=== PATIENT | female | born 1960 | race Caucasian/White ===

== ENCOUNTER → 2016-08-26 | Outpatient (CLI) | payer OTHER ==
[~2016-08-26] MED LIST: ACETAMINOPHEN650 M1 PO; ALDACTONE PO; ALDACTONE100 MG PO; AMBIEN PO; AMBIEN10 MG PO; ANTI-DIARRHEAL2 M1 PO; ATIVAN0.5 MG PO; BENTYL20 MG PO; CALCIUM + D 6001 TA1 PO; CIPRO PO; CORGARD PO; CORGARD20 MG PO; DESYREL50 MG PO; DOCUSATE SODIU100 MG PO; FERRO-TIME325 MG PO; FERROUS SULFATE PO; FLAGYL PO; FOLIC ACID1 MG PO; FUROSEMIDE40 MG PO; GLUCOTROL PO; HUMALOG100 UNIT/2 SUBQ; HUMULIN 70100 UNIT/1; HYDROCODON-ACE1 EAC5 PO; HYDROCODON-ACE1 EAC7 PO; HYDROCODONE-A1 UDTA4 PO; IRON325 ( 651 PO; IRON325 ( 652 PO; JANUVIA100 MG PO; K-DUR10 MEQ PO; K-DUR20 ME1 PO; KCL PO; KETOPROFEN50 MG PO; LANTUS SOL100 UNIT/1 SUBQ; LANTUS100 U/ML SUBQ; LANTUS100 UNITS/; LASIX PO; LASIX20 MG PO; LEVAQUIN PO; MAG-OX 400400 M1 PO; METFORMIN HCL500 M1 PO; MOBIC15 MG PO; MULTI VITAMIN1 EACH PO; MULTI-VITAMIN1 EAC1 PO; MULTIPLE VITAMI1 T11 PO; NADOLOL20 MG PO; NO MEDICATIONS; OXYCODONE-APAP1 EACH PO; PANTOPRAZOLE SO40 MG PO; PATIENT'S PHARMACY; PRAVACHOL PO; PRAVASTATIN SOD10 MG PO; PROTONIX PO; THIAMINE HCL100 MG PO; VITAMIN D-32000 UNI2 PO; ZOFRAN PO; ZOFRANODT PO
--- NOTE | ~2016-08-26 | MY11 ---
[facility] A Service of [facility] RADIOLOGY TEXT RESULTS PATIENT: BARBI FUENTES LOCATION: [facility] : 60 UNIT #: [id number] AGE: [address]: Generic Doctor NOT IN SYSTEM SEX: F ORDER DR: [id number] [facility] [address] [place], [place] [address] [id number] O MR#: [id number] Acc #: [id number] NAME: BARBI FUENTES : 1960 SEX: F STUDY DATE/TIME: 08/26/2016 13:36 UNIT: [facility] ROOM: STUDY DESCRIPTION: MY Mammogram Screening Dig Marquis Attending Physician: Generic Doctor Not In System Referring Physician: Generic Doctor Not In System Ordering Physician: Physician Non-Staff Primary Care Physician: No Primary Care Physician MEDICAL IMAGING REPORT This report is preliminary unless electronic signature is present EXAM Digital screening mammogram 08/26/2016 HISTORY 56-year-old woman, positive family history, mother age 50. Previous left breast biopsy. Significant weight loss noted. COMPARISON STUDIES 05/20/2010, 06/07/2011. FINDINGS Digital imaging of each breast was completed utilizing screening protocol. An additional exaggerated craniocaudal view of the left breast is provided. Review includes FDA-approved CAD device. Breast parenchyma is somewhat heterogeneous and partially fatty replaced. Remaining parenchymal opacities project upper central and upper outer quadrants bilaterally with dominance noted in the upper outer quadrant of the left breast. There is no breast mass identified and I see no interval occurring microcalcifications. There is no visible architectural disturbance. This dominant area was evaluated with diagnostic mammogram and ultrasound in 2010. I believe it is appropriate to reevaluate the upper outer quadrant of the left breast as parenchymal densities appear slightly greater although this could be a result of technique. Right breast is stable. IMPRESSION Incomplete mammographic evaluation. Additional left breast imaging is recommended to include a true lateral projection, exaggerated craniocaudal projection and high-resolution spot compression. Targeted left breast ultrasound should also be performed during the visit. BIRADS 0 additional left breast imaging recommended [facility] A Service [facility] RADIOLOGY TEXT RESULTS PATIENT: BARBI FUENTES LOCATION: [facility] #: [id number] : 60 UNIT #: [id number] AGE: [address]: Generic Doctor NOT IN SYSTEM SEX: F ORDER DR: Patients over the age of 40 are entered into a reminder system with target due date for the next mammogram. A result letter will also be sent to the patient. BIRADS: 0 - Need additional imaging evaluation and/or prior mammograms for comparison Dictated by... Mejia Sanders M.D. THIS IS AN ELECTRONICALLY VERIFIED REPORT Mejia Sanders M.D. at 08/26/2016 3:57 PM Hazel TD: 08/26/2016 15:07 JOB #: [id number] MEDICAL IMAGING REPORT Page 1 of 1 COPY
== END | disposition home or self-care (01) ==
LOC: CWCC 13:10
DX: Z12.31 Encounter for screening mammogram for malignant neoplasm of breast (principal); Z80.3 Family history of malignant neoplasm of breast; R92.8 Other abnormal and inconclusive findings on diagnostic imaging of breast
CPT/HCPCS: G0202

== ENCOUNTER → 2016-09-06 | Outpatient (CLI) | payer OTHER ==
--- NOTE | ~2016-09-06 | US24 ---
[facility] A Service of [facility] RADIOLOGY TEXT RESULTS PATIENT: BARBI FUENTES LOCATION: [facility] : 60 UNIT #: [id number] AGE: [address]: Michelle Mandujano MD SEX: F ORDER DR: [id number] [place] [id number] [facility]. [place], [place] [address] [id number] O MR#: [id number] Acc #: [id number] NAME: BARBI FUENTES. : 1960 SEX: F STUDY DATE/TIME: 09/06/2016 14:41 UNIT: [facility] ROOM: STUDY DESCRIPTION: US Breast Unilateral Attending Physician: Michelle Mandujano M.D. Ordering Physician: Michelle Mandujano M.D. Primary Care Physician: Michelle Mandujano M.D. MEDICAL IMAGING REPORT This report is preliminary unless electronic signature is present EXAM Left breast ultrasound INDICATIONS Abnormal screening mammogram. Asymmetric density in the upper outer quadrant left breast. FINDINGS Santo-scale and color Doppler ultrasound of the left breast was performed. There is no suspicious ultrasound findings. No evidence of malignancy. IMPRESSION Negative left breast ultrasound. Patients over the age of 40 are entered into a reminder system with target due date for the next mammogram. A result letter will also be sent to the patient. BIRADS: 1. Negative examination. Dictated by... Stefano Parisi M.D. THIS IS AN ELECTRONICALLY VERIFIED REPORT Stefano Parisi M.D. at 09/06/2016 4:58 PM RPC/rnr TD: 09/06/2016 16:38 JOB #: [id number] [facility] A Service [facility] RADIOLOGY TEXT RESULTS PATIENT: BARBI FUENTES LOCATION: [facility] : 60 UNIT #: [id number] AGE: [address]: Michelle Mandujano MD SEX: F ORDER DR: MEDICAL IMAGING REPORT Page 1 of 1 COPY
--- NOTE | ~2016-09-06 | MY7 ---
[facility] A Service of [facility] RADIOLOGY TEXT RESULTS PATIENT: BARBI FUENTES LOCATION: [facility] : 60 UNIT #: [id number] AGE: [address]: Michelle Mandujano MD SEX: F ORDER DR: [id number] [facility] [address] [place], [place] [address] [id number] O MR#: [id number] Acc #: [id number] NAME: BARBI FUENTES : 1960 SEX: F STUDY DATE/TIME: 09/06/2016 14:18 UNIT: [facility] ROOM: STUDY DESCRIPTION: MY Mammogram Dx Dig Lt Attending Physician: Michelle Mandujano M.D. Ordering Physician: Michelle Mandujano M.D. Primary Care Physician: Michelle Mandujano M.D. MEDICAL IMAGING REPORT This report is preliminary unless electronic signature is present EXAM Left digital diagnostic mammogram with CAD, 09/06/2016. HISTORY 56-year-old asymptomatic female with an abnormal screening mammogram. FINDINGS LEFT MAMMOGRAM: Spot compression CC, spot compression MLO, ML, and exaggerated CC views of the left breast were obtained. The background breast parenchyma consists of scattered fibroglandular densities. No suspicious mass, microcalcification, or architectural distortion. The spot compression views show the glandular breast tissue to be similar to multiple prior studies. Exam is compared to prior mammogram from 08/26/2016 through 05/20/2010. Given the abnormality on the screening mammogram, diagnostic left breast ultrasound was performed. LEFT BREAST ULTRASOUND: Santo-scale and color Doppler ultrasound of the upper outer quadrant of the left breast was performed. No suspicious ultrasound findings are identified. No evidence of mass or malignancy. IMPRESSION Negative left breast ultrasound and left breast mammogram. Recommend return to annual screening mammogram. Results of this study, as well as my recommendations, were discussed directly with the patient at the time of her visit to the Department of Radiology. [facility] A Service [facility] RADIOLOGY TEXT RESULTS PATIENT: BARBI FUENTES LOCATION: [facility] : 60 UNIT #: [id number] AGE: [address]: Michelle Mandujano MD SEX: F ORDER DR: Patients over the age of 40 are entered into a reminder system with target due date for the next mammogram. A result letter will also be sent to the patient. BIRADS: 1 Negative Dictated by... Stefano Parisi M.D. THIS IS AN ELECTRONICALLY VERIFIED REPORT Stefano Parisi M.D. at 09/07/2016 7:53 AM Tio TD: 09/06/2016 18:41 JOB #: [id number] MEDICAL IMAGING REPORT Page 1 of 1 COPY
--- NOTE | ~2016-09-06 | BD1 ---
[facility] A Service of [facility] RADIOLOGY TEXT RESULTS PATIENT: BARBI FUENTES LOCATION: [facility] : 60 UNIT #: [id number] AGE: [address]: Michelle Mandujano MD SEX: F ORDER DR: [id number] [facility] [address] [place], [place] [address] [id number] O MR#: [id number] Acc #: [id number] NAME: BARBI FUENTES : 1960 SEX: F STUDY DATE/TIME: 09/06/2016 14:03 UNIT: [facility] ROOM: STUDY DESCRIPTION: BD Dexa Bone Dens 1+ Site Attending Physician: Michelle Mandujano M.D. Ordering Physician: Michelle Mandujano M.D. Primary Care Physician: Michelle Mandujano M.D. MEDICAL IMAGING REPORT This report is preliminary unless electronic signature is present EXAM DXA scan HISTORY 56-year-old female with recent fracture of the clavicle. Assess bone density. FINDINGS Bone density was assessed utilizing a logic bone densitometer. The total bone density within the lumbar spine was calculated at 0.770 g/cm2 with a T-score -2.5. Total bone dense of the proximal left femur was calculated at 0.659 g/cm2 with a T-score -2.3. IMPRESSION Total bone density within the lumbar spine is 2.5 standard deviations below the mean and is compatible with the World Health Organization criteria for osteoporosis. Dictated by... Patti Dove M.D. THIS IS AN ELECTRONICALLY VERIFIED REPORT Patti Dove M.D. at 09/07/2016 1:58 PM [place] TD: 09/06/2016 17:55 JOB #: [id number] MEDICAL IMAGING REPORT Page 1 of 1 COPY
== END | disposition home or self-care (01) ==
LOC: CWCC 13:39
DX: Z13.820 Encounter for screening for osteoporosis (principal); R92.8 Other abnormal and inconclusive findings on diagnostic imaging of breast; S42.009A Fracture of unspecified part of unspecified clavicle, initial encounter for closed fracture
CPT/HCPCS: 76641; 77080; G0206

== ENCOUNTER → 2016-11-10 | Outpatient (CLI) | payer OTHER ==
--- NOTE | ~2016-11-10 | XA170 ---
[facility] A Service of [facility] RADIOLOGY TEXT RESULTS PATIENT: BARBI FUENTES LOCATION: [facility] : 60 UNIT #: [id number] AGE: [address]: DUSTY GARCIA APRN SEX: F ORDER DR: [id number] [facility] [address]. [place], [place] [address] [id number] O MR#: [id number] Acc #: [id number] NAME: BARBI FUENTES : 1960 SEX: F STUDY DATE/TIME: 11/10/2016 14:11 UNIT: [facility] ROOM: STUDY DESCRIPTION: XA Paracentesis W Image Attending Physician: Dusty Garcia Aprn Referring Physician: Dusty Garcia Aprn Ordering Physician: Dusty Garcia Aprn MEDICAL IMAGING REPORT This report is preliminary unless electronic signature is present EXAM Therapeutic paracentesis under ultrasound guidance HISTORY Refractory ascites. PROCEDURE Procedure, attendant risks and options were discussed with Ms. Fuentes. She understands and wishes to proceed. Ultrasound examination was performed. An appropriate site was chosen over the right flank. Skin was marked, prepped with Chlorhexidine, and sterile drapes applied. Utilizing sterile barrier technique, including sterile gloves, under local anesthesia, a 5-S[place]ankan catheter was inserted and a total of 2.5 L was removed. This was very well tolerated. Catheter was removed, hemostasis achieved. CONCLUSION Technically successful therapeutic paracentesis with removal of 2.5 L of fluid. Dictated by... Kartik To M.D. THIS IS AN ELECTRONICALLY VERIFIED REPORT Kartik To M.D. at 11/12/2016 9:32 AM NAWAF/juhi TD: 11/10/2016 21:27 JOB #: [id number] MEDICAL IMAGING REPORT Page 1 of 1 COPY
[2016-11-10 13:49] LABS: HEMATOCRIT 30.8 % (35.0-45.0); MEAN CELL VOLUME 92.3 FL (83-96); MEAN CORPUSCULAR HEMOGLOBIN 29.9 PG (28-34); MEAN CORPUSCULAR HGB CONC 32.4 g/dL (30-36); MEAN PLATELET VOLUME 10.7 FL (6.5-11.5); RED BLOOD COUNT 3.34 X10e (3.90-5.30); RED CELL DISTRIBUTION WIDTH 16.3 % (11.0-15.5); WHITE BLOOD COUNT 5.5 X10e3 (4.0-10.5)
[2016-11-10 14:00] LABS: INR 1.1; PROTHROMBIN TIME (PATIENT) 12.3 SECONDS (10.0-11.7)
== END | disposition home or self-care (01) ==
LOC: CIVR 13:13
PROVIDERS: Nurse Practitioner
PROC: 0W9G3ZZ Drainage of Peritoneal Cavity, Percutaneous Approach (ICD-10-PCS; principal; 2016-11-10)
DX: R18.8 Other ascites (principal)
CPT/HCPCS: 36415; 85027; 85610; 85730

== ENCOUNTER → 2016-12-20 | Day surgery (SDC) | payer OTHER ==
--- NOTE | ~2016-12-20 | OR ---
Unit #: [id number] #: [id number] Patient: BARBI FUENTES [id number] [address] [address] [id number] O MR#: [id number] NAME: BARBI FUENTES ROOM: Date of Procedure: 12/20/2016 Admission Date: 12/20/2016 Surgeon: Jefferson Lundberg M.D. : 1960 Attending Physician: Jefferson Lundberg M.D. Primary Care Physician: Bk Miles OPERATIVE REPORT PREOPERATIVE DIAGNOSIS Left shoulder retained painful hardware. POSTOPERATIVE DIAGNOSIS Left shoulder retained painful hardware. PROCEDURE PERFORMED Left shoulder deep hardware removal. YARN CONDITIONER Nuha Chavez CFA. ANESTHESIA General endotracheal. COMPLICATIONS None. SPECIMENS None. DRAINS None. SURGICAL IMPLANTS None. INDICATION FOR PROCEDURE Ms. Fuentes is a 56-year-old female who had a distal clavicle fracture roughly six months ago, treated with hook plate technique. After sufficient time to heal, it was felt that removing the hook plate was needed to prevent potential problems with the acromion as well as impingement with the rotator cuff. Discussion with the patient noted that the hook plates are not designed to stay in. She elected to proceed with surgical removal of the plate. Risks, benefits and alternatives of surgery were discussed with the patient. Informed consent was obtained. Risks include, but are not limited to, infection, bleeding, nerve injury, blood clots, risks associated with anesthesia, persistent pain, need for further surgery, and possibly . DESCRIPTION OF PROCEDURE On 12/20/2016, the patient was seen in the preoperative holding area, Unit #: [id number] #: [id number] Patient: BARBI FUENTES where her surgical site was marked. Preoperative block performed. H and P and consent updated. The patient was taken to the operating room and provided general anesthesia. She was carefully moved to beach chair position. All bony prominences were well padded. Head and neck kept in neutral position at all times. Left upper extremity was prepped and draped in typical sterile fashion. Time-out performed confirming the correct surgical site and procedure. A saber incision was made through the previous scar. Soft tissues were carefully retracted off the plate. A series of locking screws and cortical screw were removed sequentially. The plate was then freed up and removed. The hook was removed from the subacromial space. The shoulder was ranged. Full motion noted with no impingement. Before and after, fluoroscopy images were taken confirming appropriate removal of hardware and no surrounding issues with the distal clavicle. It appeared to be well healed. At this point, wound was thoroughly irrigated with normal saline. Deep tissue closed with 2-0 Vicryl suture followed by a 4-0 Monocryl subcuticular stitch for the skin. Dermabond, Telfa and Tegaderm were placed. Drapes were taken down. A simple sling was placed. The patient was subsequently awakened from general anesthesia in stable condition and taken to the PACU postoperatively. POSTOPERATIVE PLAN The patient will be discharged home. She will follow up in 7 to 10 days. She can have range of motion as tolerated. No complications encountered during the surgical procedure. Dictated by... Annie Taylor/rupali TD: 12/20/2016 10:06 JOB #: [id number] OPERATIVE REPORT Page 1 of 1 X X PROCEDURE OPERATIVE NOTE
--- NOTE | ~2016-12-20 | CR226 ---
[facility] A Service of [facility] RADIOLOGY TEXT RESULTS PATIENT: BARBI FUENTES LOCATION: [facility] : 60 UNIT #: [id number] AGE: [address]: Jefferson Lundberg MD SEX: F ORDER DR: [id number] [facility] [address] [place], [place] [address] [id number] O MR#: [id number] Acc #: [id number] NAME: BARBI FUENTES : 1960 SEX: F STUDY DATE/TIME: 12/20/2016 8:20 UNIT: [facility] ROOM: STUDY DESCRIPTION: CR Shoulder 1 View Lt Attending Physician: Jefferson Lundberg M.D. Ordering Physician: Jefferson Lundberg M.D. Primary Care Physician: Jessica Salvador M.D. MEDICAL IMAGING REPORT This report is preliminary unless electronic signature is present EXAM C-arm fluoroscopy with 2 permanent images of the left shoulder, 12/20/2016. HISTORY Left shoulder hardware removal in OR. FINDINGS C-arm fluoroscopy was provided for use in the operating room. 2 spot film radiographs of the left shoulder were obtained in the anterior projection and 0.8 minutes of fluoroscopy time was utilized. The first radiograph shows surgical plate traversing the distal clavicle and the left acromioclavicular joint. The second radiograph shows the surgical plate to have been removed. The bones appear in anatomic alignment. Dictated by... Jason Plummer M.D. THIS IS AN ELECTRONICALLY VERIFIED REPORT Jason Plummer M.D. at 12/21/2016 7:34 AM KRT/gz TD: 12/20/2016 11:06 JOB #: [id number] MEDICAL IMAGING REPORT Page 1 of 1 COPY
[2016-12-20 06:42] LABS: HEMATOCRIT 39.7 % (35.0-45.0); HEMOGLOBIN 12.9 gm/dL (12.0-16.0); MEAN CELL VOLUME 87.3 FL (83-96); MEAN CORPUSCULAR HEMOGLOBIN 28.4 PG (28-34); MEAN CORPUSCULAR HGB CONC 32.5 g/dL (30-36); MEAN PLATELET VOLUME 10.7 FL (6.5-11.5); RED BLOOD COUNT 4.55 X10e (3.90-5.30); RED CELL DISTRIBUTION WIDTH 17.8 % (11.0-15.5); WHITE BLOOD COUNT 3.7 X10e3 (4.0-10.5)
[2016-12-20 06:51] LABS: INR 1.2; PROTHROMBIN TIME (PATIENT) 12.7 SECONDS (10.0-11.7)
[2016-12-20 06:59] LABS: ALBUMIN SERUM 3.8 g/dL (3.5-5.0); BILIRUBIN,TOTAL 0.8 mg/dL (0.2-2.0); BUN/CREATININE RATIO 22.5; CREATININE SERUM 0.4 mg/dL (0.6-1.4); GLOM FILT RATE Estimated 116.5 mL/min (>60); POTASSIUM 4.2 mmol/L (3.5-5.1); PROTEIN TOTAL SERUM 7.2 g/dL (6.0-8.3)
== END | disposition home or self-care (01) ==
LOC: CSUR 05:46
PROVIDERS: Orthopaedic Surgery
DX: T84.84XA Pain due to internal orthopedic prosthetic devices, implants and grafts, initial encounter (principal); E11.9 Type 2 diabetes mellitus without complications; I10 Essential (primary) hypertension; K21.9 Gastro-esophageal reflux disease without esophagitis; E78.5 Hyperlipidemia, unspecified; F17.210 Nicotine dependence, cigarettes, uncomplicated; Z88.8 Allergy status to other drugs, medicaments and biological substances; Z79.4 Long term (current) use of insulin; Z79.899 Other long term (current) drug therapy; Z79.891 Long term (current) use of opiate analgesic; Z98.51 Tubal ligation status; Z98.818 Other dental procedure status; Z98.890 Other specified postprocedural states; Y83.1 Surgical operation with implant of artificial internal device as the cause of abnormal reaction of the patient, or of later complication, without mention of misadventure at the time of the procedure
CPT/HCPCS: 73020; 76001; 80053; 82947; 85027; 85610; J0330; J0690; J1815; J2250; J2370; J2405; J2795; J3010

== ENCOUNTER → 2017-01-18 | Day surgery (SDC) | payer OTHER ==
--- NOTE | ~2017-01-18 | OR ---
Unit #: [id number] #: [id number] Patient: BARBI FUENTES [id number] [address] [place], [place] [address] [id number] O MR#: [id number] NAME: BARBI FUENTES ROOM: Date of Procedure: 01/18/2017 Admission Date: 01/18/2017 Surgeon: Micky Mack M.D. : 1960 Attending Physician: Micky Mack M.D. Primary Care Physician: Bk Miles OPERATIVE REPORT PRIMARY CARE PHYSICIAN Jessica Salvador M.D. PREOPERATIVE DIAGNOSES The patient was recently admitted to [facility] and was told that she had esophageal varices, and the patient was admitted for four days and then discharged. She has come for elective upper endoscopy and possible variceal band ligation. PROCEDURES PERFORMED Upper gastrointestinal endoscopy and esophageal variceal band ligation. POSTOPERATIVE DIAGNOSES 1. The patient had moderately severe and diffuse portal hypertensive gastropathy changes involving the fundus and body of the stomach. 2. There were esophageal varices in the mid and distal esophagus. Only one of the two varices was larger and this was bandaged using rubber band ligation. 3. Rest of the examination up to third part of duodenum was normal. Specifically, no active bleeding was noted. RECOMMENDATIONS The patient will be followed up in the office in 3 months' time. SEDATION USED MAC. DESCRIPTION OF PROCEDURE Following detailed explanation of the potential risks and complications of an upper endoscopy, namely perforation, bleeding, and complications related to sedation, the patient was brought to GI lab and laid in the left lateral decubitus position. Lubricated tip of the Olympus video upper endoscope was passed through the bite block into the proximal esophagus under direct vision. The entire esophageal mucosa was examined. The patient was noted to have esophageal varices in mid and distal esophagus. Only one of these was grade 3 varix. The other was smaller. No stigmata of recent bleed were seen. The scope was then advanced into the gastric cavity and the latter was insufflated. Changes of portal hypertensive gastropathy were noted in the form of reticular appearance of the entire mucosa of the fundus and midbody of the stomach. The changes were also present in the antral area. Pylorus was intubated with visualization of the normal duodenal bulb and second and third part of the Unit #: [id number] #: [id number] Patient: BARBI FUENTES duodenum. Upon withdrawal and retroflexion; incisura, cardia, and greater curve was examined and no additional findings were noted. The scope was then withdrawn in the distal esophagus. The entire esophageal mucosa was examined all the way up to pharynx. No additional findings were noted. A rapid shooter band ligator assembly was mounted on the scope tip. The patient was reintubated. One of the larger of the two varices was then treated by rubber band ligation. A band being deployed just above the GE junction. Excellent hemostasis was achieved and photodocumentation was obtained. The scope was then withdrawn all the way up to pharynx. No additional findings were noted. The patient tolerated the procedure without any postprocedure complications. Dictated by... Annie Phillips TD: 01/18/2017 16:26 JOB #: [id number] OPERATIVE REPORT Page 1 of 1 X Micky Mack MD X PROCEDURE OPERATIVE NOTE
[2017-01-18 13:39] LABS: BASOPHIL% 1.2 % (0-2.5); EOSINOPHIL# 0.1 X10e3 (0-0.7); EOSINOPHIL% 1.7 % (0.0-7.0); HEMATOCRIT 38.5 % (35.0-45.0); HEMOGLOBIN 12.9 gm/dL (12.0-16.0); LYMPHOCYTE# 0.6 X10e3 (1.0-3.5); LYMPHOCYTE% 14.6 % (17.0-45.0); MEAN CELL VOLUME 85.1 FL (83-96); MEAN CORPUSCULAR HEMOGLOBIN 28.6 PG (28-34); MEAN CORPUSCULAR HGB CONC 33.6 g/dL (30-36); MEAN PLATELET VOLUME 9.2 FL (6.5-11.5); MONOCYTE# 0.3 X10e3 (0-1.0); MONOCYTE% 6.9 % (3.0-12.0); NEUTROPHIL% 75.6 % (40-75); RED BLOOD COUNT 4.52 X10e (3.90-5.30); RED CELL DISTRIBUTION WIDTH 18.8 % (11.0-15.5)
[2017-01-18 14:07] LABS: INR 1.1; PROTHROMBIN TIME (PATIENT) 12.1 SECONDS (10.0-11.7)
[2017-01-18 14:15] LABS: BUN/CREATININE RATIO 23.33; CALCIUM SERUM 9.3 mg/dL (8.4-10.2); CREATININE SERUM 0.6 mg/dL (0.6-1.4); GLOM FILT RATE Estimated 101.9 mL/min (>60); POTASSIUM 3.4 mmol/L (3.5-5.1)
[2017-01-18 14:34] LABS: DIFF IND NO; PLATELET COUNT 62 X10e3 (140-420)
== END | disposition home or self-care (01) ==
LOC: COPS 09:49
PROVIDERS: Internal Medicine Gastroenterology
DX: I85.00 Esophageal varices without bleeding (principal); K76.6 Portal hypertension; K31.89 Other diseases of stomach and duodenum; I10 Essential (primary) hypertension; E11.9 Type 2 diabetes mellitus without complications; E78.5 Hyperlipidemia, unspecified; F17.210 Nicotine dependence, cigarettes, uncomplicated; Z88.8 Allergy status to other drugs, medicaments and biological substances; Z79.4 Long term (current) use of insulin; Z79.891 Long term (current) use of opiate analgesic; Z79.899 Other long term (current) drug therapy; Z98.51 Tubal ligation status
CPT/HCPCS: 80048; 82947; 85025; 85610; J2250